=== PATIENT | male | born 1995 ===

== ENCOUNTER 2018-01-28 14:51 | Emergency (ER) | payer OTHER ==
[2018-01-28 15:11] VITALS: BP 113/62
--- NOTE | 2018-01-28 15:28 | UC ---
HPI Febrile Illness - HPI Summary HPI Summary: 22 year old male with fever, neck pain sore throat for 1 day presents in UC setting . He is UTD with vaccinations. Concern for strep. No cough. ? fever but taking motrin. - History of Current Complaint Chief Complaint: UCGeneralIllness Time Seen by Provider: 01/28/18 15:18 Timing: Constant Pain Intensity: 5 Associated Signs and Symptoms: Negative, Sore Throat - Allergy/Home Medications Allergies/Adverse Reactions: Allergies Allergy/AdvReac Type Severity Reaction Status Date / Time No Known Allergies Allergy Verified 01/28/18 15:11 Home Medications: Home Medications Ibuprofen [Advil] 400 mg PO 01/28/18 [History] PMH/Surg Hx/FS Hx/Imm Hx Previously Healthy: Yes - Surgical History Surgical History: None - Social History Occupation: [employer] Alcohol Use: Weekly Substance Use Type: Marijuana Smoking Status (MU): Never Smoked Tobacco Review of Systems Constitutional: Fever, Chills, Fatigue ENT: Sore Throat Is Patient Immunocompromised?: No All Other Systems Reviewed And Are Negative: Yes Physical Exam Triage Information Reviewed: Yes Appearance: Well-Appearing, No Pain Distress, Well-Nourished Vital Signs: Initial Vital Signs Temp 98.9 F 01/28/18 15:06 Pulse 65 01/28/18 15:06 Resp 16 01/28/18 15:06 BP 113/62 01/28/18 15:06 Pulse Ox 98 01/28/18 15:06 Vital Signs Reviewed: Yes Eye Exam: Normal ENT Exam: Normal ENT: Positive: Pharyngeal erythema, Nasal congestion. Negative: Tonsillar swelling, Tonsillar exudate Neck exam: Normal Neck: Positive: 1 Respiratory Exam: Normal Cardiovascular Exam: Normal Abdominal Exam: Normal Musculoskeletal Exam: Normal Neurological Exam: Normal Psychological Exam: Normal Skin Exam: Normal Course/Dx - Course Course Of Treatment: neg strep - Febrile Illness Differential Diagnoses: Viremia - Diagnoses Clinic Provider Diagnoses: viral pharyngitis Discharge - Sign-Out/Discharge Documenting (check all that apply): Discharge/Admit/Transfer - Discharge Plan Condition: Good Disposition: HOME Patient Education Materials: Pharyngitis (ED) Referrals: No Primary Care Phys,NOPCP [Primary Care Provider] - If Needed Additional Instructions: Your strep testing was negative today. - Billing Disposition and Condition Condition: GOOD Disposition: HOME
== END 2018-01-28 16:10 | disposition home or self-care (01) ==
LOC: UCEAST 14:51
DX: J02.8 Acute pharyngitis due to other specified organisms (principal)
CPT/HCPCS: 87651; 99201; G0463

== ENCOUNTER 2018-06-28 03:37 | Emergency (ER) | payer OTHER ==
--- NOTE | 2018-06-28 07:18 | ED ---
Burn - HPI Summary HPI Summary: Patient presents with concern for recent exposure to bleach. He reports he poured bleach directly onto his carpet earlier last night. He could smell the fumes and called [facility] to ask if he should sleep in his room or if he should not sleep in his room due to this chemical being out in the air. He states [facility] told him to call an ambulance her come here. He drove himself here as he has no symptoms. Denies burning of the eyes, nose, throat, lungs. He has no difficulty swallowing or breathing, no wheezing, no shortness of breath. He also denies the bleach contacting his skin and has no complaints. He is here as he was simply concerned about staying in his room or not last night. He admits he opened a window prior to leaving and is hoping the fumes of dispersed for his return this morning. - History of Current Complaint Chief Complaint: EDThroatPain Stated Complaint: THROAT PAIN Time Seen by Provider: 06/28/18 05:56 Hx Obtained From: Patient Pain Intensity: 0 - Allergy/Home Medications Allergies/Adverse Reactions: Allergies Allergy/AdvReac Type Severity Reaction Status Date / Time No Known Allergies Allergy Verified 01/28/18 15:11 PMH/Surg Hx/FS Hx/Imm Hx Infectious Disease History: No Infectious Disease History: Denies: Traveled Outside the [place] in Last 30 Days - Social History Alcohol Use: Weekly Substance Use Type: Reports: Marijuana Smoking Status (MU): Never Smoked Tobacco Physical Exam Vital Signs On Initial Exam: Initial Vitals Temp Pulse Resp BP Pulse Ox 98.2 F 65 15 128/84 98 06/28/18 03:41 06/28/18 03:41 06/28/18 03:41 06/28/18 03:41 06/28/18 03:41 Burn Calculation - [place] Formula for Fluid Resuscitation Weight: 145 lb 24 -Hour Fluid Replacement: 0.0 Diagnostics - Vital Signs Vital Signs Temp Pulse Resp BP Pulse Ox 06/28/18 04:43 18 139/79 98 06/28/18 03:41 98.2 F 65 15 128/84 98 - Laboratory Lab Statement: Any lab studies that have been ordered have been reviewed, and results considered in the medical decision making process. Discharge - Sign-Out/Discharge Documenting (check all that apply): Patient Departure - Discharge Plan Condition: Stable Disposition: HOME Referrals: [facility] - Maximo QUIJANO [Medical Doctor] - Additional Instructions: You have reported a respiratory exposure to bleach cleaning solution. It does not appear that you have any acute injury at this time however if you develop difficulty breathing or swallowing over the next 24-48 hours, return to the emergency department. In the future, always dilute bleach according to directions on container and handle with clothes in a well ventilated room or outdoors if possible. Avoid contact with skin and mucous membranes and never directly inhale - mix or pour away from face/mouth to avoid potential exposure. - Billing Disposition and Condition Condition: STABLE Disposition: Home
[2018-06-28 08:28] VITALS: BP 142/97
== END 2018-06-28 08:28 | disposition home or self-care (01) ==
LOC: ED 03:37
DX: Z77.29 Contact with and (suspected) exposure to other hazardous substances (principal)
CPT/HCPCS: 99281